=== PATIENT | female | born 1980 | race Two or more races ===

== ENCOUNTER 2024-04-16 16:54 | Emergency (ER) | payer SELFPAY ==
[~2024-04-16] VITALS: Ht 165.1 cm; Wt 91.0 kg
[2024-04-16 17:09] VITALS: BP 145/91; PULSE 100; RESP 18; TEMP 98.1; O2SAT 100
[2024-04-16] MEDS: LIDOCAINE HCL/EPINEPHRINE 1%-EPI 1:100,000 20 ML VIAL INFIL ONE (20:15)
[2024-04-16] MEDS ORDERED: IBUP-2030 MT (22:41)
[2024-04-16] MEDS ORDERED: TOPUD MT (22:41)
[2024-04-16] MEDS ORDERED: AMOX50SU15 MT (22:41)
== END 2024-04-16 22:52 | disposition home or self-care (01) ==
LOC: ER 16:54
DX: J36 Peritonsillar abscess (principal)
CPT/HCPCS: 99284; 42700; J3490; 99282